=== PATIENT | female | born 1980 | race Caucasian/White ===

== ENCOUNTER 2018-02-17 17:04 | Emergency (ER) | payer OTHER, SELFPAY ==
[2018-02-17 17:08] VITALS: BP 114/80; PULSE 77; RESP 16; TEMP 36.7; O2SAT 99
--- NOTE | 2018-02-17 17:31 | ED.ABDPAIN ---
HPI - Abdominal Pain <Kaela Floyd PA-C - Last Filed: 02/17/18 21:52> General Chief Complaint: Abdominal Pain Stated Complaint: STOMACH PAIN 6 DAYS AFTER GIVING Time Seen by Provider: 02/17/18 17:25 Source: patient Mode of arrival: ambulatory Limitations: no limitations History of Present Illness HPI narrative: This 37-year-old female is 6 days , released from the hospital on Monday after she required a D and C for placental removal. She required 3 units of blood. She states that she has had some abdominal pain since in the hospital, but she thought this was just postoperative pain. She had been on ibuprofen and [place] in the hospital. She discontinue the [place] and has been taking ibuprofen. She states that pain has gotten worse, especially today. She states that at times she feels this on both sides of her mid to lower abdomen, right now seems to be more in the upper abdomen. At times it can radiate through to her back. She thinks there is some positional component and also maybe just has worsened because she is up and walking around more than when in the hospital. She states that at times she is more comfortable on her side but this is not consistent. She reports decreased appetite without nausea or vomiting. She has not had fever, chills, sweats. She states she is still bleeding so there is some blood in her urine but she denies any dysuria or acute urinary symptoms. She had a normal bowel movement yesterday. She denies any chest pain, dyspnea, or new swelling in her extremities. Related Data Home Medications Medication Instructions Recorded Confirmed cabergoline 0.5 mg PO QWEEK #0 12/20/16 levothyroxine [Synthroid] 50 mcg PO QAM #0 12/20/16 multivitamin [Multiple Vitamins] 1 tab PO QDAY #0 12/20/16 Previous Rx's Medication Instructions Recorded amoxicillin-pot clavulanate 1 tab PO Q12H #20 tab 02/17/18 hydrocodone-acetaminophen [[place]] 1 tab PO Q6H PRN #10 tab 02/17/18 Allergies Allergy/AdvReac Type Severity Reaction Status Date / Time No Known Drug Allergies Allergy Verified 02/17/18 17:07 Review of Systems <Kaela Floyd PA-C - Last Filed: 02/17/18 21:52> Review of Systems All systems reviewed & are unremarkable except as noted in HPI and below PFSH <Kaela Floyd PA-C - Last Filed: 02/17/18 21:52> Comment: Occasional ETOH Exam <Kaela Floyd PA-C - Last Filed: 02/17/18 21:52> Narrative Exam Narrative: GENERAL APPEARANCE: Patient sitting comfortably, in no distress. HEENT: PERRL, EOMI, no scleral icterus NECK: Supple LUNGS: Clear to auscultation bilaterally. HEART: Rate and rhythm regular, normal S1 and S2, no S3 or S4. ABDOMEN: Soft, nondistended, hypoactive bowel sounds present x 4 quadrants, no masses palpable, no hepatosplenomegaly. Moderate generalized tenderness a bit more over the epigastrium and right upper quadrant without guarding or rebound. No suprapubic tenderness EXTREMITIES: No edema, no calf tenderness DERMATOLOGIC: No jaundice or exanthem NEUROLOGIC: Alert and oriented with normal speech and coordination Initial Vital Signs Initial Vital Signs: Vital Signs Temperature 98.1 F 02/17/18 17:08 Pulse Rate 77 02/17/18 17:08 Respiratory Rate 16 02/17/18 17:08 Blood Pressure 114/80 02/17/18 17:08 Pulse Oximetry 99 02/17/18 17:08 <Alyse Contreras DO - Last Filed: 02/18/18 03:48> Initial Vital Signs Initial Vital Signs: Vital Signs Temperature 98.1 F 02/17/18 17:08 Pulse Rate 77 02/17/18 17:08 Respiratory Rate 16 02/17/18 17:08 Blood Pressure 114/80 02/17/18 17:08 Pulse Oximetry 99 02/17/18 17:08 Course <Kaela Floyd PA-C - Last Filed: 02/17/18 21:52> Additional Information: Patient is feeling significantly improved after fluids and pain medication. She has been afebrile, no vomiting. Pain has been more consistent with right upper quadrant and epigastric pain on exam though she does describe pain lower in the abdomen/midline earlier. I spoke with Dr. Morris green promotions specialist for OB at [facility] and reviewed CT findings and lab work. She agrees this could be consistent with postoperative status but also thinks reasonable to treat for endometritis as an outpatient. Patient is breast-feeding and was started on Augmentin. She can restart [place] as needed, advised to limit when possible. Discussed threshold for return needs to be very low if she has worsening pain, or new symptoms such as fever, vomiting, increased breathing and she is agreeable. Dr. Morris will have follow up arranged for her on Monday when they reopen after the holiday. She has CD of imaging studies to take for review and comparison if needed. Orders Ordered: ED Orders 02/17/18 19:04 CT abdomen pelvis w con Stat Discontinued Medications Hydrocodone Bitart/Acetaminophen ([place] 5/325) 2 tab PO NOW ONE Stop: 02/17/18 17:47 Last Admin: 02/17/18 17:58 Dose: 2 tab Hydrocodone Bitart/Acetaminophen (Vicodin Prepack) 1 bottle MISC SEEINSTR ONE Stop: 02/17/18 21:19 Last Admin: 02/17/18 21:25 Dose: 1 bottle Amoxicillin/Clavulanate Potassium (Augmentin 875-125 Mg) 1 tab PO NOW ONE Stop: 02/17/18 21:08 Last Admin: 02/17/18 21:41 Dose: Amoxicillin/Clavulanate Potassium (Augmentin 875-125 Mg) 2 tab PO NOW ONE Stop: 02/17/18 21:19 Last Admin: 02/17/18 21:25 Dose: 2 tab Sodium Chloride (Normal Saline 0.9%) 1,000 mls @ 1,000 mls/hr IV BOLUS ONE Stop: 02/17/18 18:45 Last Infusion: 02/17/18 21:20 Dose: 0 mls/hr Admin: 02/17/18 17:58 Dose: 1,000 mls/hr Vital Signs - 8 hr 02/17/18 20:23 02/17/18 21:37 Pulse Rate 79 76 Respiratory Rate 16 17 Blood Pressure [Right Arm] 117/82 124/85 Pulse Oximetry 99 99 <Alyse Contreras DO - Last Filed: 02/18/18 03:48> Orders Ordered: ED Orders 02/17/18 19:04 CT abdomen pelvis w con Stat Discontinued Medications Hydrocodone Bitart/Acetaminophen ([place] 5/325) 2 tab PO NOW ONE Stop: 02/17/18 17:47 Last Admin: 02/17/18 17:58 Dose: 2 tab Hydrocodone Bitart/Acetaminophen (Vicodin Prepack) 1 bottle MISC SEEINSTR ONE Stop: 02/17/18 21:19 Last Admin: 02/17/18 21:25 Dose: 1 bottle Amoxicillin/Clavulanate Potassium (Augmentin 875-125 Mg) 1 tab PO NOW ONE Stop: 02/17/18 21:08 Last Admin: 02/17/18 21:41 Dose: Amoxicillin/Clavulanate Potassium (Augmentin 875-125 Mg) 2 tab PO NOW ONE Stop: 02/17/18 21:19 Last Admin: 02/17/18 21:25 Dose: 2 tab Sodium Chloride (Normal Saline 0.9%) 1,000 mls @ 1,000 mls/hr IV BOLUS ONE Stop: 02/17/18 18:45 Last Infusion: 02/17/18 21:20 Dose: 0 mls/hr Admin: 02/17/18 17:58 Dose: 1,000 mls/hr Vital Signs - 8 hr 02/17/18 20:23 02/17/18 21:37 Pulse Rate 79 76 Respiratory Rate 16 17 Blood Pressure [Right Arm] 117/82 124/85 Pulse Oximetry 99 99 MDM - Abdominal Pain <Kaela Floyd PA-C - Last Filed: 02/17/18 21:52> Lab Data Attestation: I reviewed the patient's lab results. Result diagrams: 02/17/18 17:30 02/17/18 17:30 Lab Results 02/17/18 02/17/18 02/17/18 Range/Units 17:30 17:30 17:30 WBC 12.9 H (4.5-11.0) X10^3/uL RBC 3.15 L (4.0-5.2) X10^6/uL Hgb 10.1 L (12.0-16.0) g/dL Hct 29.8 L (36-46) % MCV 94.7 (80-100) fL MCH 32.0 (26-34) PG MCHC 33.8 (30-36) % RDW 15.9 H (11.6-14.8) % Plt Count 248 (150-400) X10^3/uL Neut % (Auto) 82.9 H (50-75) % Lymph % (Auto) 9.7 L (25-40) % [place] % (Auto) 5.7 (3-14) % Eos % (Auto) 1.1 L (2-4) % Baso % (Auto) 0.6 (0-2) % Neut # (Auto) 58524 H (5679-0726) /uL PT 11.7 (10.1-12.7) SECONDS INR 1.0 (0.9-1.3) APTT 24 L (26.4-36.2) SECONDS Sodium 140 (137-145) mmol/L Potassium 4.1 (3.4-5.1) mmol/L Chloride 106 (98-107) mmol/L Carbon Dioxide 22 (22-32) mmol/L BUN 12 (7-17) mg/dL Creatinine 0.60 (0.52-1.04) mg/dL Estimated GFR > 60.0 (>60) mL/min BUN/Creatinine Ratio 20.0 (6-22) Glucose 99 (70-100) mg/dL Lactate (0.7-2.1) mmol/L Calcium 8.4 (8.4-10.2) mg/dL Total Bilirubin 0.3 (0.2-1.3) mg/dL AST 30 (14-36) IU/L ALT 39 (9-52) IU/L Alkaline Phosphatase 112 (38-126) U/L Total Protein 6.5 (6.3-8.2) g/dL Albumin 3.5 (3.5-5.0) g/dL Globulin 3.0 (1.7-4.1) g/dL Albumin/Globulin Ratio 1.2 (1.0-2.8) Lipase 69 (23-300) U/L Urine RBC (0-5/HPF) Urine WBC (0-5/HPF) Ur Squamous Epith Cells Urine Bacteria (None) Ur Culture Indicated? Micro UA Comment 02/17/18 02/17/18 Range/Units 17:48 18:04 WBC (4.5-11.0) X10^3/uL RBC (4.0-5.2) X10^6/uL Hgb (12.0-16.0) g/dL Hct (36-46) % MCV (80-100) fL MCH (26-34) PG MCHC (30-36) % RDW (11.6-14.8) % Plt Count (150-400) X10^3/uL Neut % (Auto) (50-75) % Lymph % (Auto) (25-40) % [place] % (Auto) (3-14) % Eos % (Auto) (2-4) % Baso % (Auto) (0-2) % Neut # (Auto) (5367-3846) /uL PT (10.1-12.7) SECONDS INR (0.9-1.3) APTT (26.4-36.2) SECONDS Sodium (137-145) mmol/L Potassium (3.4-5.1) mmol/L Chloride (98-107) mmol/L Carbon Dioxide (22-32) mmol/L BUN (7-17) mg/dL Creatinine (0.52-1.04) mg/dL Estimated GFR (>60) mL/min BUN/Creatinine Ratio (6-22) Glucose (70-100) mg/dL Lactate 0.7 (0.7-2.1) mmol/L Calcium (8.4-10.2) mg/dL Total Bilirubin (0.2-1.3) mg/dL AST (14-36) IU/L ALT (9-52) IU/L Alkaline Phosphatase (38-126) U/L Total Protein (6.3-8.2) g/dL Albumin (3.5-5.0) g/dL Globulin (1.7-4.1) g/dL Albumin/Globulin Ratio (1.0-2.8) Lipase (23-300) U/L Urine RBC 10-30/hpf H (0-5/HPF) Urine WBC 1-5/hpf (0-5/HPF) Ur Squamous Epith Cells 0-1 /hpf Urine Bacteria None seen (None) Ur Culture Indicated? Cult not indicated Micro UA Comment Not Reportable Point of care testing: Urine Dip Bedside Urine Glucose Negative Bedside Urine Bilirubin - Negative Bedside Urine Ketone +/- 5 Urine Specific [place] 1.030 Bedside Urine Occult Blood +++ Bedside Urine pH 6.0 Bedside Urine Protein +/- 15 Bedside Urine Urobilinogen - Negative Bedside Urine Nitrite - Negative Bedside Urine Leukocytes - Negative Esterase Imaging Data CT scan - abdomen: Radiologist's impression: [address] [address] [address] Scan Report Signed Patient: Clarisa Kimball MR#: [id number] : 1980 Acct:[id number] Age/Sex: 37 / F Date of Service: 02/17/18 Loc: ED Accession Number: [id number] Procedure: CT abdomen pelvis w con Ordering Provider: Kaela Floyd P.A-C PROCEDURE: CT ABDOMEN PELVIS W CON INDICATIONS: pain, 6d post s/p D C TECHNIQUE: After the administration of intravenous contrast, 5 mm thick sections acquired from the diaphragm to the symphysis. 5 mm coronal and sagittal reformats were acquired. For radiation dose reduction, the following was used: automated exposure control, adjustment of mA and/or kV according to patient size. COMPARISON: [facility], , US ABDOMEN COMPLETE, 02/17/2018, 18:39. FINDINGS: Image quality: Excellent. ABDOMEN: Lung bases: Lung bases are clear. Heart size is normal. Solid organs: Liver is enlarged steatosis. Gallbladder is unremarkable. Biliary system is non dilated. Pancreas enhances normally. Spleen is normal in size and enhancement. No adrenal nodules. Kidneys demonstrate normal size and enhancement, without hydronephrosis. Peritoneum and bowel: Bowel loops demonstrate normal wall thickness and caliber. No free fluid or air. Nodes and vessels: No retroperitoneal or mesenteric adenopathy by size criteria. Aorta and inferior vena cava are normal in size. Miscellaneous: Fat containing ventral hernia is present with rectus diastases measuring 30 mm. Breast implants are noted. PELVIS: Genitourinary: Bladder wall thickness is normal. The uterus is markedly enlarged consistent with history. The endometrium is widened and heterogeneous low attenuation with multiple foci of air. There is focal area of hyperdensity within the endometrium at the fundal portion. Hounsfield units of this region measures approximately 115. Miscellaneous: No inguinal hernias or adenopathy. Bones: No suspicious bony lesions. No vertebral body compression fractures. IMPRESSION: 1. Enlarged uterus consistent with state. The endometrium is widened and heterogeneous with areas of low attenuation and air. This could be business banking representative of recent D&C changes. However, presence of air can also be indicative of developing abscess. Correlation to patient's symptoms and laboratory data is recommended. There is hyperdensity identified within the fundal portion of the endometrium. Given this is not visualized on the abdominal x-ray, it is felt to unlikely represent calcification. This could represent a focal area of enhancement of a mass or given recent history, potential area of vascular extravasation representing hemorrhage. Hounsfield units are greater than expected for hemorrhage. However, it does appear to be contiguous with adjacent uterine vasculature. Pelvic ultrasound is recommended for further evaluation for potential enhancement of a mass versus complex fluid which would be more suggestive of hemorrhage. Dictated by: Jodi Holguin M.D. on 02/17/2018 at 20:36 Approved by: Jodi Holguin M.D. on 02/17/2018 at 20:42 US - abdomen: Radiologist's impression: [address] [address] Ultrasound Report Signed Patient: Clarisa Kimball MR#: [id number] : 1980 Acct:[id number] Age/Sex: 37 / F Date of Service: 02/17/18 Loc: ED Accession Number: [id number] Procedure: US abdomen complete Ordering Provider: Kaela Floyd P.A-C PROCEDURE: US ABDOMEN COMPLETE INDICATIONS: MID ABDOMINAL PAIN 6 DAYS POST /D C TECHNIQUE: Real-time scanning was performed of the abdominal and retroperitoneal organs, with image documentation. COMPARISON: [facility], CR, XR ACUTE ABDOMEN SERIES, 02/17/2018, 17:57. FINDINGS: Liver: Liver is mildly prominent. Gallbladder: Gallbladder is unremarkable. Biliary ducts: Intrahepatic bile ducts are non-dilated. Extrahepatic bile duct caliber measures 5.3 mm. Normal is 6-7 mm or less in diameter, or 10 mm or less post-cholecystectomy. Pancreas: Visualized portions of the pancreas are sonographically normal. Spleen: Spleen is normal in size and homogeneous in echotexture. Kidneys: Kidneys are normal in size and echotexture. Right kidney measures 13.7 cm long; left kidney measures 13.2 cm long. No hydronephrosis or nephrolithiasis. No solid masses. Aorta: Visualized aorta is normal in caliber at less than 3 cm. Iliacs: Proximal common iliac arteries are not visualized. IVC: Intrahepatic inferior vena cava is patent. Miscellaneous: No free abdominal fluid. IMPRESSION: No acute intra-abdominal process. Dictated by: Jodi Holguin M.D. on 02/17/2018 at 19:22 Approved by: Jodi Holguin M.D. on 02/17/2018 at 19:32 Abdominal x-ray: Radiologist's impression: [address] [address] XRay Report Signed Patient: Clarisa Kimball MR#: [id number] : 1980 Acct:[id number] Age/Sex: 37 / F Date of Service: 02/17/18 Loc: ED Accession Number: [id number] Procedure: XR acute abdomen series Ordering Provider: Kaela Floyd P.A-C PROCEDURE: XR ACUTE ABDOMEN SERIES INDICATIONS: pain TECHNIQUE: One view chest and two views of the abdomen were acquired. COMPARISON: None. FINDINGS: Surgical changes and devices: None. Chest: Lungs are clear. Heart size is normal. No pleural effusions. No pneumoperitoneum. Abdomen: Bowel gas pattern is normal. No suspicious calcifications. Visualized solid organ contours appear normal. Bones: No suspicious bony lesions. IMPRESSION: Unremarkable exam. Dictated by: Jodi Holguin M.D. on 02/17/2018 at 18:35 Approved by: Jodi Holguin M.D. on 02/17/2018 at 18:35 <Alyse Contreras DO - Last Filed: 02/18/18 03:48> Lab Data Lab Results 02/17/18 02/17/18 02/17/18 Range/Units 17:30 17:30 17:30 WBC 12.9 H (4.5-11.0) X10^3/uL RBC 3.15 L (4.0-5.2) X10^6/uL Hgb 10.1 L (12.0-16.0) g/dL Hct 29.8 L (36-46) % MCV 94.7 (80-100) fL MCH 32.0 (26-34) PG MCHC 33.8 (30-36) % RDW 15.9 H (11.6-14.8) % Plt Count 248 (150-400) X10^3/uL Neut % (Auto) 82.9 H (50-75) % Lymph % (Auto) 9.7 L (25-40) % [place] % (Auto) 5.7 (3-14) % Eos % (Auto) 1.1 L (2-4) % Baso % (Auto) 0.6 (0-2) % Neut # (Auto) 85648 H (6008-1448) /uL PT 11.7 (10.1-12.7) SECONDS INR 1.0 (0.9-1.3) APTT 24 L (26.4-36.2) SECONDS Sodium 140 (137-145) mmol/L Potassium 4.1 (3.4-5.1) mmol/L Chloride 106 (98-107) mmol/L Carbon Dioxide 22 (22-32) mmol/L BUN 12 (7-17) mg/dL Creatinine 0.60 (0.52-1.04) mg/dL Estimated GFR > 60.0 (>60) mL/min BUN/Creatinine Ratio 20.0 (6-22) Glucose 99 (70-100) mg/dL Lactate (0.7-2.1) mmol/L Calcium 8.4 (8.4-10.2) mg/dL Total Bilirubin 0.3 (0.2-1.3) mg/dL AST 30 (14-36) IU/L ALT 39 (9-52) IU/L Alkaline Phosphatase 112 (38-126) U/L Total Protein 6.5 (6.3-8.2) g/dL Albumin 3.5 (3.5-5.0) g/dL Globulin 3.0 (1.7-4.1) g/dL Albumin/Globulin Ratio 1.2 (1.0-2.8) Lipase 69 (23-300) U/L Urine RBC (0-5/HPF) Urine WBC (0-5/HPF) Ur Squamous Epith Cells Urine Bacteria (None) Ur Culture Indicated? Micro UA Comment 02/17/18 02/17/18 Range/Units 17:48 18:04 WBC (4.5-11.0) X10^3/uL RBC (4.0-5.2) X10^6/uL Hgb (12.0-16.0) g/dL Hct (36-46) % MCV (80-100) fL MCH (26-34) PG MCHC (30-36) % RDW (11.6-14.8) % Plt Count (150-400) X10^3/uL Neut % (Auto) (50-75) % Lymph % (Auto) (25-40) % [place] % (Auto) (3-14) % Eos % (Auto) (2-4) % Baso % (Auto) (0-2) % Neut # (Auto) (3630-8430) /uL PT (10.1-12.7) SECONDS INR (0.9-1.3) APTT (26.4-36.2) SECONDS Sodium (137-145) mmol/L Potassium (3.4-5.1) mmol/L Chloride (98-107) mmol/L Carbon Dioxide (22-32) mmol/L BUN (7-17) mg/dL Creatinine (0.52-1.04) mg/dL Estimated GFR (>60) mL/min BUN/Creatinine Ratio (6-22) Glucose (70-100) mg/dL Lactate 0.7 (0.7-2.1) mmol/L Calcium (8.4-10.2) mg/dL Total Bilirubin (0.2-1.3) mg/dL AST (14-36) IU/L ALT (9-52) IU/L Alkaline Phosphatase (38-126) U/L Total Protein (6.3-8.2) g/dL Albumin (3.5-5.0) g/dL Globulin (1.7-4.1) g/dL Albumin/Globulin Ratio (1.0-2.8) Lipase (23-300) U/L Urine RBC 10-30/hpf H (0-5/HPF) Urine WBC 1-5/hpf (0-5/HPF) Ur Squamous Epith Cells 0-1 /hpf Urine Bacteria None seen (None) Ur Culture Indicated? Cult not indicated Micro UA Comment Not Reportable Point of care testing: Urine Dip Bedside Urine Glucose Negative Bedside Urine Bilirubin - Negative Bedside Urine Ketone +/- 5 Urine Specific [place] 1.030 Bedside Urine Occult Blood +++ Bedside Urine pH 6.0 Bedside Urine Protein +/- 15 Bedside Urine Urobilinogen - Negative Bedside Urine Nitrite - Negative Bedside Urine Leukocytes - Negative Esterase Discharge Plan Departure Patient Disposition: Home Clinical Impression: Abdominal pain, Endometritis Discharge Date/Time: 02/17/18 21:46 Interventions: ED Discharge Assessment Last Done: 02/17/18 21:41 Instructions: DI for Abdominal Pain-Adult, DI for Endometritis Activity Restrictions/Additional Instructions: Please return as we talked about if you have any worsening symptoms this or develops new symptoms such as fever, increased bleeding, or vomiting. Otherwise, please take the 2nd dose of the antibiotic that we gave you in the morning. You can take the hydrocodone/acetaminophen that you had been taking previously as needed. Gentle walking is okay, but avoid excess exertion for now. I [place] regarding your lab work and CT findings. Your exam today is not typical for a uterine infection, and the changes on your scan could be due to delivery and surgery, however we are going to treat you for an infection as well with the antibiotic amoxicillin/clavulanic acid. You can use this while . Please take your 2nd dose in the morning and continue twice daily. As long as you are not feeling worse over the next few days, you can follow up as an outpatient (she has your information and said she will make sure that you get scheduled, but please make sure that you call and leave a message there as well that you were seen in the ED and are supposed to get scheduled). Please take your radiology disc with you so that they can review it, and we will send records and lab work Prescriptions: New hydrocodone-acetaminophen [[place]] 5-325 mg tablet 1 tab PO Q6H PRN (Reason: pain) Qty: 10 RF: 0 amoxicillin-pot clavulanate 875-125 mg tablet 1 tab PO Q12H Qty: 20 RF: 0 No Action levothyroxine [Synthroid] 50 MCG tablet 50 mcg PO QAM Qty: 0 RF: 0 multivitamin [Multiple Vitamins] 1 EACH tablet 1 tab PO QDAY Qty: 0 RF: 0 cabergoline 0.5 MG tablet 0.5 mg PO QWEEK Qty: 0 RF: 0 Referrals: TIFF Cardona [Other] Juan Carlos Paz MD [Primary Care Provider] - <Alyse Contreras, - Last Filed: 02/18/18 03:48> Cosign ED Attending Coskacieature Attestation: I was immediately available in the department for consultation. Documentation has been reviewed. I agree with assessment and plan.
[2018-02-17 17:39] LABS: Add Manual Diff / Slide Review NO; Basophils Percent Auto 0.6 % (0-2); Eosinophils Percent Auto 1.1 % (2-4); Hematocrit 29.8 % (36-46); Hemoglobin 10.1 g/dL (12.0-16.0); Lymphocytes Percent Auto 9.7 % (25-40); Mean Corpuscular HGB Conc 33.8 % (30-36); Mean Corpuscular Volume 94.7 fL (80-100); Monocytes Percent Auto 5.7 % (3-14); Neutrophils Absolute Auto 10700 /uL (1500-7000); Neutrophils Percent Auto 82.9 % (50-75); Platelet Count 248 X10^3/uL (150-400); Red Blood Cell Count 3.15 X10^6/uL (4.0-5.2); Red Cell Distribution Width 15.9 % (11.6-14.8); White Blood Cell Count 12.9 X10^3/uL (4.5-11.0)
[2018-02-17 17:42] LABS: Prothrombin Time 11.7 SECONDS (10.1-12.7)
[2018-02-17 17:44] LABS: PTT Partial Thromboplastin Tim 24 SECONDS (26.4-36.2)
--- NOTE | 2018-02-17 17:51 | ED_ITS ---
HPI - Abdominal Pain <Kaela Floyd PA-C - Last Filed: 02/17/18 21:52> General Chief Complaint: Abdominal Pain Stated Complaint: STOMACH PAIN 6 DAYS AFTER GIVING Time Seen by Provider: 02/17/18 17:25 Source: patient Mode of arrival: ambulatory Limitations: no limitations History of Present Illness HPI narrative: This 37-year-old female is 6 days , released from the hospital on Monday after she required a D and C for placental removal. She required 3 units of blood. She states that she has had some abdominal pain since in the hospital, but she thought this was just postoperative pain. She had been on ibuprofen and [place] in the hospital. She discontinue the [place] and has been taking ibuprofen. She states that pain has gotten worse, especially today. She states that at times she feels this on both sides of her mid to lower abdomen, right now seems to be more in the upper abdomen. At times it can radiate through to her back. She thinks there is some positional component and also maybe just has worsened because she is up and walking around more than when in the hospital. She states that at times she is more comfortable on her side but this is not consistent. She reports decreased appetite without nausea or vomiting. She has not had fever, chills, sweats. She states she is still bleeding so there is some blood in her urine but she denies any dysuria or acute urinary symptoms. She had a normal bowel movement yesterday. She denies any chest pain, dyspnea, or new swelling in her extremities. Related Data Home Medications Medication Instructions Recorded Confirmed cabergoline 0.5 mg PO QWEEK #0 12/20/16 levothyroxine [Synthroid] 50 mcg PO QAM #0 12/20/16 multivitamin [Multiple Vitamins] 1 tab PO QDAY #0 12/20/16 Previous Rx's Medication Instructions Recorded amoxicillin-pot clavulanate 1 tab PO Q12H #20 tab 02/17/18 hydrocodone-acetaminophen [[place]] 1 tab PO Q6H PRN #10 tab 02/17/18 Allergies Allergy/AdvReac Type Severity Reaction Status Date / Time No Known Drug Allergies Allergy Verified 02/17/18 17:07 Review of Systems <Kaela Floyd PA-C - Last Filed: 02/17/18 21:52> Review of Systems All systems reviewed & are unremarkable except as noted in HPI and below PFSH <Kaela Floyd PA-C - Last Filed: 02/17/18 21:52> Comment: Occasional ETOH Exam <Kaela Floyd PA-C - Last Filed: 02/17/18 21:52> Narrative Exam Narrative: GENERAL APPEARANCE: Patient sitting comfortably, in no distress. HEENT: PERRL, EOMI, no scleral icterus NECK: Supple LUNGS: Clear to auscultation bilaterally. HEART: Rate and rhythm regular, normal S1 and S2, no S3 or S4. ABDOMEN: Soft, nondistended, hypoactive bowel sounds present x 4 quadrants, no masses palpable, no hepatosplenomegaly. Moderate generalized tenderness a bit more over the epigastrium and right upper quadrant without guarding or rebound. No suprapubic tenderness EXTREMITIES: No edema, no calf tenderness DERMATOLOGIC: No jaundice or exanthem NEUROLOGIC: Alert and oriented with normal speech and coordination Initial Vital Signs Initial Vital Signs: Vital Signs Temperature 98.1 F 02/17/18 17:08 Pulse Rate 77 02/17/18 17:08 Respiratory Rate 16 02/17/18 17:08 Blood Pressure 114/80 02/17/18 17:08 Pulse Oximetry 99 02/17/18 17:08 <Alyse Contreras DO - Last Filed: 02/18/18 03:48> Initial Vital Signs Initial Vital Signs: Vital Signs Temperature 98.1 F 02/17/18 17:08 Pulse Rate 77 02/17/18 17:08 Respiratory Rate 16 02/17/18 17:08 Blood Pressure 114/80 02/17/18 17:08 Pulse Oximetry 99 02/17/18 17:08 Course <Kaela Floyd PA-C - Last Filed: 02/17/18 21:52> Additional Information: Patient is feeling significantly improved after fluids and pain medication. She has been afebrile, no vomiting. Pain has been more consistent with right upper quadrant and epigastric pain on exam though she does describe pain lower in the abdomen/midline earlier. I spoke with Dr. Morris sales solutions representative for OB at [facility] and reviewed CT findings and lab work. She agrees this could be consistent with postoperative status but also thinks reasonable to treat for endometritis as an outpatient. Patient is breast- feeding and was started on Augmentin. She can restart [place] as needed, advised to limit when possible. Discussed threshold for return needs to be very low if she has worsening pain, or new symptoms such as fever, vomiting, increased breathing and she is agreeable. Dr. Morris will have follow up arranged for her on Monday when they reopen after the holiday. She has CD of imaging studies to take for review and comparison if needed. Orders Ordered: ED Orders 02/17/18 19:04 CT abdomen pelvis w con Stat Discontinued Medications Hydrocodone Bitart/Acetaminophen ([place] 5/325) 2 tab PO NOW ONE Stop: 02/17/18 17:47 Last Admin: 02/17/18 17:58 Dose: 2 tab Hydrocodone Bitart/Acetaminophen (Vicodin Prepack) 1 bottle MISC SEEINSTR ONE Stop: 02/17/18 21:19 Last Admin: 02/17/18 21:25 Dose: 1 bottle Amoxicillin/Clavulanate Potassium (Augmentin 875-125 Mg) 1 tab PO NOW ONE Stop: 02/17/18 21:08 Last Admin: 02/17/18 21:41 Dose: Amoxicillin/Clavulanate Potassium (Augmentin 875-125 Mg) 2 tab PO NOW ONE Stop: 02/17/18 21:19 Last Admin: 02/17/18 21:25 Dose: 2 tab Sodium Chloride (Normal Saline 0.9%) 1,000 mls @ 1,000 mls/hr IV BOLUS ONE Stop: 02/17/18 18:45 Last Infusion: 02/17/18 21:20 Dose: 0 mls/hr Admin: 02/17/18 17:58 Dose: 1,000 mls/hr Vital Signs - 8 hr 02/17/18 20:23 02/17/18 21:37 Pulse Rate 79 76 Respiratory Rate 16 17 Blood Pressure [Right Arm] 117/82 124/85 Pulse Oximetry 99 99 <Alyse Contreras DO - Last Filed: 02/18/18 03:48> Orders Ordered: ED Orders 02/17/18 19:04 CT abdomen pelvis w con Stat Discontinued Medications Hydrocodone Bitart/Acetaminophen ([place] 5/325) 2 tab PO NOW ONE Stop: 02/17/18 17:47 Last Admin: 02/17/18 17:58 Dose: 2 tab Hydrocodone Bitart/Acetaminophen (Vicodin Prepack) 1 bottle MISC SEEINSTR ONE Stop: 02/17/18 21:19 Last Admin: 02/17/18 21:25 Dose: 1 bottle Amoxicillin/Clavulanate Potassium (Augmentin 875-125 Mg) 1 tab PO NOW ONE Stop: 02/17/18 21:08 Last Admin: 02/17/18 21:41 Dose: Amoxicillin/Clavulanate Potassium (Augmentin 875-125 Mg) 2 tab PO NOW ONE Stop: 02/17/18 21:19 Last Admin: 02/17/18 21:25 Dose: 2 tab Sodium Chloride (Normal Saline 0.9%) 1,000 mls @ 1,000 mls/hr IV BOLUS ONE Stop: 02/17/18 18:45 Last Infusion: 02/17/18 21:20 Dose: 0 mls/hr Admin: 02/17/18 17:58 Dose: 1,000 mls/hr Vital Signs - 8 hr 02/17/18 20:23 02/17/18 21:37 Pulse Rate 79 76 Respiratory Rate 16 17 Blood Pressure [Right Arm] 117/82 124/85 Pulse Oximetry 99 99 MDM - Abdominal Pain <Kaela Floyd PA-C - Last Filed: 02/17/18 21:52> Lab Data Attestation: I reviewed the patient's lab results. Result diagrams: 02/17/18 17:30 02/17/18 17:30 Lab Results 02/17/18 02/17/18 02/17/18 Range/Units 17:30 17:30 17:30 WBC 12.9 H (4.5-11.0) X10^3/uL RBC 3.15 L (4.0-5.2) X10^6/uL Hgb 10.1 L (12.0-16.0) g/dL Hct 29.8 L (36-46) % MCV 94.7 (80-100) fL MCH 32.0 (26-34) PG MCHC 33.8 (30-36) % RDW 15.9 H (11.6-14.8) % Plt Count 248 (150-400) X10^3/uL Neut % (Auto) 82.9 H (50-75) % Lymph % (Auto) 9.7 L (25-40) % [place] % (Auto) 5.7 (3-14) % Eos % (Auto) 1.1 L (2-4) % Baso % (Auto) 0.6 (0-2) % Neut # (Auto) 74677 H (4190-2273) /uL PT 11.7 (10.1-12.7) SECONDS INR 1.0 (0.9-1.3) APTT 24 L (26.4-36.2) SECONDS Sodium 140 (137-145) mmol/L Potassium 4.1 (3.4-5.1) mmol/L Chloride 106 (98-107) mmol/L Carbon Dioxide 22 (22-32) mmol/L BUN 12 (7-17) mg/dL Creatinine 0.60 (0.52-1.04) mg/dL Estimated GFR > 60.0 (>60) mL/min BUN/Creatinine Ratio 20.0 (6-22) Glucose 99 (70-100) mg/dL Lactate (0.7-2.1) mmol/L Calcium 8.4 (8.4-10.2) mg/dL Total Bilirubin 0.3 (0.2-1.3) mg/dL AST 30 (14-36) IU/L ALT 39 (9-52) IU/L Alkaline Phosphatase 112 (38-126) U/L Total Protein 6.5 (6.3-8.2) g/dL Albumin 3.5 (3.5-5.0) g/dL Globulin 3.0 (1.7-4.1) g/dL Albumin/Globulin Ratio 1.2 (1.0-2.8) Lipase 69 (23-300) U/L Urine RBC (0-5/HPF) Urine WBC (0-5/HPF) Ur Squamous Epith Cells Urine Bacteria (None) Ur Culture Indicated? Micro UA Comment 02/17/18 02/17/18 Range/Units 17:48 18:04 WBC (4.5-11.0) X10^3/uL RBC (4.0-5.2) X10^6/uL Hgb (12.0-16.0) g/dL Hct (36-46) % MCV (80-100) fL MCH (26-34) PG MCHC (30-36) % RDW (11.6-14.8) % Plt Count (150-400) X10^3/uL Neut % (Auto) (50-75) % Lymph % (Auto) (25-40) % [place] % (Auto) (3-14) % Eos % (Auto) (2-4) % Baso % (Auto) (0-2) % Neut # (Auto) (9385-9989) /uL PT (10.1-12.7) SECONDS INR (0.9-1.3) APTT (26.4-36.2) SECONDS Sodium (137-145) mmol/L Potassium (3.4-5.1) mmol/L Chloride (98-107) mmol/L Carbon Dioxide (22-32) mmol/L BUN (7-17) mg/dL Creatinine (0.52-1.04) mg/dL Estimated GFR (>60) mL/min BUN/Creatinine Ratio (6-22) Glucose (70-100) mg/dL Lactate 0.7 (0.7-2.1) mmol/L Calcium (8.4-10.2) mg/dL Total Bilirubin (0.2-1.3) mg/dL AST (14-36) IU/L ALT (9-52) IU/L Alkaline Phosphatase (38-126) U/L Total Protein (6.3-8.2) g/dL Albumin (3.5-5.0) g/dL Globulin (1.7-4.1) g/dL Albumin/Globulin Ratio (1.0-2.8) Lipase (23-300) U/L Urine RBC 10-30/hpf H (0-5/HPF) Urine WBC 1-5/hpf (0-5/HPF) Ur Squamous Epith Cells 0-1 /hpf Urine Bacteria None seen (None) Ur Culture Indicated? Cult not indicated Micro UA Comment Not Reportable Point of care testing: Urine Dip Bedside Urine Glucose Negative Bedside Urine Bilirubin - Negative Bedside Urine Ketone +/- 5 Urine Specific [place] 1.030 Bedside Urine Occult Blood +++ Bedside Urine pH 6.0 Bedside Urine Protein +/- 15 Bedside Urine Urobilinogen - Negative Bedside Urine Nitrite - Negative Bedside Urine Leukocytes - Negative Esterase Imaging Data CT scan - abdomen: Radiologist's impression: [address] [id number] [address] Scan Report Signed Patient: Clarisa Kimball MR#: [id number] : 1980 Acct:[id number] Age/Sex: 37 / F Date of Service: 02/17/18 Loc: ED Accession Number: [id number] Procedure: CT abdomen pelvis w con Ordering Provider: Kaela Floyd P.A-C PROCEDURE: CT ABDOMEN PELVIS W CON INDICATIONS: pain, 6d post s/p D C TECHNIQUE: After the administration of intravenous contrast, 5 mm thick sections acquired from the diaphragm to the symphysis. 5 mm coronal and sagittal reformats were acquired. For radiation dose reduction, the following was used: automated exposure control, adjustment of mA and/or kV according to patient size. COMPARISON: [facility], , US ABDOMEN COMPLETE, 02/17/2018, 18:39. FINDINGS: Image quality: Excellent. ABDOMEN: Lung bases: Lung bases are clear. Heart size is normal. Solid organs: Liver is enlarged steatosis. Gallbladder is unremarkable. Biliary system is non dilated. Pancreas enhances normally. Spleen is normal in size and enhancement. No adrenal nodules. Kidneys demonstrate normal size and enhancement, without hydronephrosis. Peritoneum and bowel: Bowel loops demonstrate normal wall thickness and caliber. No free fluid or air. Nodes and vessels: No retroperitoneal or mesenteric adenopathy by size criteria. Aorta and inferior vena cava are normal in size. Miscellaneous: Fat containing ventral hernia is present with rectus diastases measuring 30 mm. Breast implants are noted. PELVIS: Genitourinary: Bladder wall thickness is normal. The uterus is markedly enlarged consistent with history. The endometrium is widened and heterogeneous low attenuation with multiple foci of air. There is focal area of hyperdensity within the endometrium at the fundal portion. Hounsfield units of this region measures approximately 115. Miscellaneous: No inguinal hernias or adenopathy. Bones: No suspicious bony lesions. No vertebral body compression fractures. IMPRESSION: 1. Enlarged uterus consistent with state. The endometrium is widened and heterogeneous with areas of low attenuation and air. 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 However, presence of air can also be indicative of developing abscess. Correlation to patient's symptoms and laboratory data is recommended. There is hyperdensity identified within the fundal portion of the endometrium. Given this is not visualized on the abdominal x-ray, it is felt to unlikely represent calcification. This could represent a focal area of enhancement of a mass or given recent history, potential area of vascular extravasation representing hemorrhage. Hounsfield units are greater than expected for hemorrhage. However, it does appear to be contiguous with adjacent uterine vasculature. Pelvic ultrasound is recommended for further evaluation for potential enhancement of a mass versus complex fluid which would be more suggestive of hemorrhage. Dictated by: Jodi Holguin M.D. on 02/17/2018 at 20:36 Approved by: Jodi Holguin M.D. on 02/17/2018 at 20:42 US - abdomen: Radiologist's impression: [address] [address] Ultrasound Report Signed Patient: Clarisa Kimball MR#: [id number] : 1980 Acct:[id number] Age/Sex: 37 / F Date of Service: 02/17/18 Loc: ED Accession Number: [id number] Procedure: US abdomen complete Ordering Provider: Kaela Floyd P.A-C PROCEDURE: US ABDOMEN COMPLETE INDICATIONS: MID ABDOMINAL PAIN 6 DAYS POST /D C TECHNIQUE: Real-time scanning was performed of the abdominal and retroperitoneal organs, with image documentation. COMPARISON: [facility], CR, XR ACUTE ABDOMEN SERIES, 02/17/2018, 17:57. FINDINGS: Liver: Liver is mildly prominent. Gallbladder: Gallbladder is unremarkable. Biliary ducts: Intrahepatic bile ducts are non-dilated. Extrahepatic bile duct caliber measures 5.3 mm. Normal is 6-7 mm or less in diameter, or 10 mm or less post-cholecystectomy. Pancreas: Visualized portions of the pancreas are sonographically normal. Spleen: Spleen is normal in size and homogeneous in echotexture. Kidneys: Kidneys are normal in size and echotexture. Right kidney measures 13.7 cm long; left kidney measures 13.2 cm long. No hydronephrosis or nephrolithiasis. No solid masses. Aorta: Visualized aorta is normal in caliber at less than 3 cm. Iliacs: Proximal common iliac arteries are not visualized. IVC: Intrahepatic inferior vena cava is patent. Miscellaneous: No free abdominal fluid. IMPRESSION: No acute intra-abdominal process. Dictated by: Jodi Holguin M.D. on 02/17/2018 at 19:22 Approved by: Jodi Holguin M.D. on 02/17/2018 at 19:32 Abdominal x-ray: Radiologist's impression: [address] [address] XRay Report Signed Patient: Clarisa Kimball MR#: [id number] : 1980 Acct:[id number] Age/Sex: 37 / F Date of Service: 02/17/18 Loc: ED Accession Number: [id number] Procedure: XR acute abdomen series Ordering Provider: Kaela Floyd P.A-C PROCEDURE: XR ACUTE ABDOMEN SERIES INDICATIONS: pain TECHNIQUE: One view chest and two views of the abdomen were acquired. COMPARISON: None. FINDINGS: Surgical changes and devices: None. Chest: Lungs are clear. Heart size is normal. No pleural effusions. No pneumoperitoneum. Abdomen: Bowel gas pattern is normal. No suspicious calcifications. Visualized solid organ contours appear normal. Bones: No suspicious bony lesions. IMPRESSION: Unremarkable exam. Dictated by: Jodi Holguin M.D. on 02/17/2018 at 18:35 Approved by: Jodi Holguin M.D. on 02/17/2018 at 18:35 <Alyse Contreras DO - Last Filed: 02/18/18 03:48> Lab Data Lab Results 02/17/18 02/17/18 02/17/18 Range/Units 17:30 17:30 17:30 WBC 12.9 H (4.5-11.0) X10^3/uL RBC 3.15 L (4.0-5.2) X10^6/uL Hgb 10.1 L (12.0-16.0) g/dL Hct 29.8 L (36-46) % MCV 94.7 (80-100) fL MCH 32.0 (26-34) PG MCHC 33.8 (30-36) % RDW 15.9 H (11.6-14.8) % Plt Count 248 (150-400) X10^3/uL Neut % (Auto) 82.9 H (50-75) % Lymph % (Auto) 9.7 L (25-40) % [place] % (Auto) 5.7 (3-14) % Eos % (Auto) 1.1 L (2-4) % Baso % (Auto) 0.6 (0-2) % Neut # (Auto) 97921 H (7408-0234) /uL PT 11.7 (10.1-12.7) SECONDS INR 1.0 (0.9-1.3) APTT 24 L (26.4-36.2) SECONDS Sodium 140 (137-145) mmol/L Potassium 4.1 (3.4-5.1) mmol/L Chloride 106 (98-107) mmol/L Carbon Dioxide 22 (22-32) mmol/L BUN 12 (7-17) mg/dL Creatinine 0.60 (0.52-1.04) mg/dL Estimated GFR > 60.0 (>60) mL/min BUN/Creatinine Ratio 20.0 (6-22) Glucose 99 (70-100) mg/dL Lactate (0.7-2.1) mmol/L Calcium 8.4 (8.4-10.2) mg/dL Total Bilirubin 0.3 (0.2-1.3) mg/dL AST 30 (14-36) IU/L ALT 39 (9-52) IU/L Alkaline Phosphatase 112 (38-126) U/L Total Protein 6.5 (6.3-8.2) g/dL Albumin 3.5 (3.5-5.0) g/dL Globulin 3.0 (1.7-4.1) g/dL Albumin/Globulin Ratio 1.2 (1.0-2.8) Lipase 69 (23-300) U/L Urine RBC (0-5/HPF) Urine WBC (0-5/HPF) Ur Squamous Epith Cells Urine Bacteria (None) Ur Culture Indicated? Micro UA Comment 02/17/18 02/17/18 Range/Units 17:48 18:04 WBC (4.5-11.0) X10^3/uL RBC (4.0-5.2) X10^6/uL Hgb (12.0-16.0) g/dL Hct (36-46) % MCV (80-100) fL MCH (26-34) PG MCHC (30-36) % RDW (11.6-14.8) % Plt Count (150-400) X10^3/uL Neut % (Auto) (50-75) % Lymph % (Auto) (25-40) % [place] % (Auto) (3-14) % Eos % (Auto) (2-4) % Baso % (Auto) (0-2) % Neut # (Auto) (9897-3489) /uL PT (10.1-12.7) SECONDS INR (0.9-1.3) APTT (26.4-36.2) SECONDS Sodium (137-145) mmol/L Potassium (3.4-5.1) mmol/L Chloride (98-107) mmol/L Carbon Dioxide (22-32) mmol/L BUN (7-17) mg/dL Creatinine (0.52-1.04) mg/dL Estimated GFR (>60) mL/min BUN/Creatinine Ratio (6-22) Glucose (70-100) mg/dL Lactate 0.7 (0.7-2.1) mmol/L Calcium (8.4-10.2) mg/dL Total Bilirubin (0.2-1.3) mg/dL AST (14-36) IU/L ALT (9-52) IU/L Alkaline Phosphatase (38-126) U/L Total Protein (6.3-8.2) g/dL Albumin (3.5-5.0) g/dL Globulin (1.7-4.1) g/dL Albumin/Globulin Ratio (1.0-2.8) Lipase (23-300) U/L Urine RBC 10-30/hpf H (0-5/HPF) Urine WBC 1-5/hpf (0-5/HPF) Ur Squamous Epith Cells 0-1 /hpf Urine Bacteria None seen (None) Ur Culture Indicated? Cult not indicated Micro UA Comment Not Reportable Point of care testing: Urine Dip Bedside Urine Glucose Negative Bedside Urine Bilirubin - Negative Bedside Urine Ketone +/- 5 Urine Specific [place] 1.030 Bedside Urine Occult Blood +++ Bedside Urine pH 6.0 Bedside Urine Protein +/- 15 Bedside Urine Urobilinogen - Negative Bedside Urine Nitrite - Negative Bedside Urine Leukocytes - Negative Esterase Discharge Plan Departure Patient Disposition: Home Clinical Impression: Abdominal pain, Endometritis Discharge Date/Time: 02/17/18 21:46 Interventions: ED Discharge Assessment Last Done: 02/17/18 21:41 Instructions: DI for Abdominal Pain-Adult, DI for Endometritis Activity Restrictions/Additional Instructions: Please return as we talked about if you have any worsening symptoms this or develops new symptoms such as fever, increased bleeding, or vomiting. Otherwise , please take the 2nd dose of the antibiotic that we gave you in the morning. You can take the hydrocodone/acetaminophen that you had been taking previously as needed. Gentle walking is okay, but avoid excess exertion for now. [place] your lab work and CT findings. Your exam today is not typical for a uterine infection, and the changes on your scan could be due to delivery and surgery, however we are going to treat you for an infection as well with the antibiotic amoxicillin/clavulanic acid. You can use this while . Please take your 2nd dose in the morning and continue twice daily. As long as you are not feeling worse over the next few days, you can follow up as an outpatient (she has your information and said she will make sure that you get scheduled, but please make sure that you call and leave a message there as well that you were seen in the ED and are supposed to get scheduled). Please take your radiology disc with you so that they can review it, and we will send records and lab work Prescriptions: New hydrocodone-acetaminophen [[place]] 5-325 mg tablet 1 tab PO Q6H PRN (Reason: pain) Qty: 10 RF: 0 amoxicillin-pot clavulanate 875-125 mg tablet 1 tab PO Q12H Qty: 20 RF: 0 No Action levothyroxine [Synthroid] 50 MCG tablet 50 mcg PO QAM Qty: 0 RF: 0 multivitamin [Multiple Vitamins] 1 EACH tablet 1 tab PO QDAY Qty: 0 RF: 0 cabergoline 0.5 MG tablet 0.5 mg PO QWEEK Qty: 0 RF: 0 Referrals: [facility] [Other] Juan Carlos Paz MD [Primary Care Provider] - <Alyse Contreras, - Last Filed: 02/18/18 03:48> Cosign ED Attending Coskacieature Attestation: I was immediately available in the department for consultation. Documentation has been reviewed. I agree with assessment and plan.
[2018-02-17] MEDS: HYDROCODONE/ACET 5/325 TABLET 2 TAB PO (17:58)
[2018-02-17] MEDS: SODIUM CHLORIDE 0.9% 1,000 ML 1000 ML IV (17:58)
[2018-02-17 18:01] LABS: Alanine Aminotransferase 39 IU/L (9-52); Albumin 3.5 g/dL (3.5-5.0); Albumin Globulin Ratio 1.2 (1.0-2.8); Alkaline Phosphatase 112 U/L (38-126); Aspartate Aminotransferase 30 IU/L (14-36); Bilirubin Total 0.3 mg/dL (0.2-1.3); Blood Urea Nitrogen 12 mg/dL (7-17); Calcium 8.4 mg/dL (8.4-10.2); Carbon Dioxide 22 mmol/L (22-32); Chloride 106 mmol/L (98-107); Estimated Glomerular Filt Rate > 60.0 mL/min (>60); Glucose 99 mg/dL (70-100); HEMOLYSIS < 15 (0-50); Lipase 69 U/L (23-300); Potassium 4.1 mmol/L (3.4-5.1); Sodium 140 mmol/L (137-145); Total Protein 6.5 g/dL (6.3-8.2)
[2018-02-17 18:05] LABS: Bacteria Urine None Seen
[2018-02-17 18:20] LABS: Culture Indicated Urine Cult Not Indicated; RBC Urine 10-30/HPF (0-5/HPF); Squamous Epithelial Cell Urine 0-1 /HPF; WBC Urine 1-5/HPF (0-5/HPF)
[2018-02-17 18:35] LABS: Lactate (Lactic Acid) 0.7 mmol/L (0.7-2.1)
--- NOTE | 2018-02-17 19:04 | DI.CT.S_ITS ---
PROCEDURE: CT ABDOMEN PELVIS W CON INDICATIONS: pain, 6d post s/p D C TECHNIQUE: After the administration of intravenous contrast, 5 mm thick sections acquired from the diaphragm to the symphysis. 5 mm coronal and sagittal reformats were acquired. For radiation dose reduction, the following was used: automated exposure control, adjustment of mA and/or kV according to patient size. COMPARISON: [facility], US, US ABDOMEN COMPLETE, 02/17/2018, 18:39. FINDINGS: Image quality: Excellent. ABDOMEN: Lung bases: Lung bases are clear. Heart size is normal. Solid organs: Liver is enlarged steatosis. Gallbladder is unremarkable. Biliary system is non dilated. Pancreas enhances normally. Spleen is normal in size and enhancement. No adrenal nodules. Kidneys demonstrate normal size and enhancement, without hydronephrosis. Peritoneum and bowel: Bowel loops demonstrate normal wall thickness and caliber. No free fluid or air. Nodes and vessels: No retroperitoneal or mesenteric adenopathy by size criteria. Aorta and inferior vena cava are normal in size. Miscellaneous: Fat containing ventral hernia is present with rectus diastases measuring 30 mm. Breast implants are noted. PELVIS: Genitourinary: Bladder wall thickness is normal. The uterus is markedly enlarged consistent with history. The endometrium is widened and heterogeneous low attenuation with multiple foci of air. There is focal area of hyperdensity within the endometrium at the fundal portion. Hounsfield units of this region measures approximately 115. Miscellaneous: No inguinal hernias or adenopathy. Bones: No suspicious bony lesions. No vertebral body compression fractures. IMPRESSION: 1. Enlarged uterus consistent with state. The endometrium is widened and heterogeneous with areas of low attenuation and air. 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 However, presence of air can also be indicative of developing abscess. Correlation to patient's symptoms and laboratory data is recommended. There is hyperdensity identified within the fundal portion of the endometrium. Given this is not visualized on the abdominal x-ray, it is felt to unlikely represent calcification. This could represent a focal area of enhancement of a mass or given recent history, potential area of vascular extravasation representing hemorrhage. Hounsfield units are greater than expected for hemorrhage. However, it does appear to be contiguous with adjacent uterine vasculature. Pelvic ultrasound is recommended for further evaluation for potential enhancement of a mass versus complex fluid which would be more suggestive of hemorrhage. Dictated by: Jodi Holguin M.D. on 02/17/2018 at 20:36 Approved by: Jodi Holguin M.D. on 02/17/2018 at 20:42
[2018-02-17 20:23] VITALS: BP 117/82; PULSE 79; RESP 16; O2SAT 99
[2018-02-17] MEDS: AMOXICILLIN/CLAV 875/125 MG 2 TAB PO (21:25)
[2018-02-17] MEDS: HYDROCODONE/ACET 5/325 PREPACK 1 BOTTLE MISC (21:25)
[2018-02-17 21:37] VITALS: BP 124/85; PULSE 76; RESP 17; O2SAT 99
== END 2018-02-17 21:46 | disposition home or self-care (01) ==
PROVIDERS: Emergency Provider Internal Medicine; PCP Family Medicine
DX: N80.9 Endometriosis, unspecified (principal); R10.9 Unspecified abdominal pain
CPT/HCPCS: 36591; 74022; 74177; 76700; 80053; 81003; 81015; 83605; 83690; 85025; 85610; 85730; 96360; 96361; 99283; 99285; Q9967